=== PATIENT | male | born 1970 | race American Indian/Alaskan Native ===

== ENCOUNTER → 2018-12-02 07:24 | Outpatient (CLI) | payer BC, SELFPAY ==
--- NOTE | 2018-12-02 | DI.MRI.S_ITS ---
PROCEDURE: MR KNEE LT WO CON INDICATIONS: LEFT LEG POSSIBLE HYPER EXTENSION INJURY, LATERAL TECHNIQUE: Noncontrast sagittal PD fast spin echo and T2 fast spin echo with fat saturation, sagittal 3-D FLASH with fat saturation; coronal T1 spin echo and PD fast spin echo with fat saturation, and axial PD fast spin echo with fat saturation through the knee. COMPARISON: [facility], MR, KNEE WITHOUT CONTRAST, 09/22/2013, 18:25. FINDINGS: Image quality: Excellent. 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 Complex tear involving the anterior horn, body and posterior horn of the lateral meniscus. There is a large multiloculated para meniscal cyst adjacent to the anterior horn, which measures approximately 1.4 x 1.2 cm on sagittal image 25 series 7, and approximately 3.0 cm in the transverse dimension on coronal image 13 series 10, it appears to extend into the anterior intercondylar notch. This has increased in size since prior study. Cruciate ligaments: The anterior and posterior cruciate ligaments appear intact. Medial structures: The medial collateral ligament appears intact. The posterior oblique ligament, semimembranosus tendon insertions, oblique popliteal ligament, and meniscocapsular junction appear intact. Visualized portions of the pes anserinus tendons appear normal. No abnormal bursal fluid. Lateral structures: The lateral collateral ligament sprain although the appearance is new or progressed since 09/22/13. The long and short heads of the biceps femoris tendon appear intact. The popliteus tendon appears normal; the popliteofibular ligament appears intact. The posterosuperior and anteroinferior popliteomeniscal fascicles appear intact. The arcuate and fabellofibular ligaments appear intact, on either side of the lateral inferior geniculate artery. Iliotibial band appears normal. Anterior structures: The quadriceps and patellar tendons appear intact. Patellar alignment is normal. No femoral trochlear dysplasia or ventral trochlear prominence. No edema in the infrapatellar fat pad. Bones and cartilage: No bone marrow contusions or fractures. Within the medial compartment, diffuse surface fraying of the femoral and tibial articular cartilage. Within the lateral compartment, there is diffuse partial thickness of the femoral and tibial cartilage. Within the patellofemoral compartment, there is diffuse partial thickness loss of the patellar and femoral trochlear cartilage. Joint space: Moderate to large joint effusion is present. Trace Tellez's cyst identified. No definite intra-articular loose bodies IMPRESSION: Complex circumferential tear of the lateral meniscus with associated large multiloculated parameniscal cyst next to the anterior horn as detailed above, it appears enlarged since the prior study and extends into the anterior intercondylar notch. Tricompartmental joint degeneration. Interval progression of proximal lateral collateral ligament sprain although no more recent prior examinations available. Moderate to large joint effusion. Trace Tellez's cyst. Dictated by: Luis Bean M.D. on 12/02/2018 at 10:15 Approved by: Luis Bean M.D. on 12/02/2018 at 10:27
== END ==
PROVIDERS: Family Provider Family Medicine; PCP Family Medicine; Visit Provider Family Medicine
DX: S83.272A Complex tear of lateral meniscus, current injury, left knee, initial encounter (principal); S83.422A Sprain of lateral collateral ligament of left knee, initial encounter; M17.12 Unilateral primary osteoarthritis, left knee; M25.462 Effusion, left knee; X58.XXXA Exposure to other specified factors, initial encounter
CPT/HCPCS: 73721

== ENCOUNTER → 2019-03-11 08:32 | Outpatient (CLI) | payer BC, SELFPAY ==
[2019-03-11 09:30] LABS: Add Manual Diff / Slide Review NO; Basophils Absolute Auto 0 /uL (0-100); Basophils Percent Auto 0.8 % (0-2); Eosinophils Absolute Auto 100 /uL (0-450); Eosinophils Percent Auto 2.8 % (2-4); Hematocrit 41.5 % (41-53); Hemoglobin 14.4 g/dL (13.5-17.5); Lymphocytes Absolute Auto 1800 /uL (1100-4500); Lymphocytes Percent Auto 38.1 % (25-40); Mean Corpuscular HGB Conc 34.7 % (30-36); Mean Corpuscular Hemoglobin 30.9 PG (26-34); Mean Corpuscular Volume 89.2 fL (80-100); Monocytes Absolute Auto 600 /uL (0-900); Monocytes Percent Auto 11.8 % (3-14); Neutrophils Absolute Auto 2200 /uL (1500-7000); Neutrophils Percent Auto 46.5 % (50-75); Platelet Count 199 X10^3/uL (150-400); Red Blood Cell Count 4.66 X10^6/uL (4.5-5.9); Red Cell Distribution Width 13.4 % (11.6-14.8); White Blood Cell Count 4.8 X10^3/uL (4.5-11.0)
[2019-03-11 09:41] LABS: Alanine Aminotransferase 67 IU/L (21-72); Albumin 4.2 g/dL (3.5-5.0); Albumin Globulin Ratio 1.1 (1.0-2.8); Alkaline Phosphatase 57 U/L (38-126); Aspartate Aminotransferase 44 IU/L (17-59); BUN Creatinine Ratio 25.7 (6-22); Bilirubin Total 0.5 mg/dL (0.2-1.3); Blood Urea Nitrogen 18 mg/dL (9-20); Carbon Dioxide 25 mmol/L (22-32); Chloride 105 mmol/L (98-107); Cholesterol 209 mg/dL (140-199); Estimated Glomerular Filt Rate > 60.0 mL/min (>60); Globulin 3.7 g/dL (1.7-4.1); Glucose 118 mg/dL (70-100); HDL Cholesterol 28 mg/dL (40-60); HEMOLYSIS < 15 (0-50); LDL Cholesterol Calculated 127 mg/dL (<100); Potassium 4.1 mmol/L (3.4-5.1); Sodium 139 mmol/L (137-145); Total Protein 7.9 g/dL (6.3-8.2); Triglycerides 268 mg/dL (35-150)
[2019-03-11 10:00] LABS: HEMOLYSIS < 15 (0-50); Iron 121 ug/dL (49-181); Vitamin D 25 Hydroxy (D3) 22.1 ng/mL (30.0-100.0)
[2019-03-11 10:08] LABS: Hemoglobin A1C% w Est Avg Glu 5.4 % (4.0-6.0)
[2019-03-11 10:12] LABS: Percent Iron Saturation 39 % (20-50); Total Iron Binding Capacity 313 ug/dL (261-462); Transferrin 240 mg/dL (206-381)
[2019-03-11 10:36] LABS: Thyroid Stimulating Hormone 1.47 uIU/mL (0.47-4.68)
[2019-03-11 10:42] LABS: Folate 7.3 ng/mL (2.76-20.0); Vitamin B12 530 pg/mL (239-931)
[2019-03-13 21:06] LABS: Sex Hormone Binding Globulin 32 nmol/L (10-50); Testosterone, Bioavailable 130.4 ng/dL (110.0-575.0); Testosterone, Total 495 ng/dL (250-1100); Testosterone,Free 70.9 pg/mL (46.0-224.0)
[2019-03-14 16:31] LABS: Vitamin A 44 mcg/dL (38-98)
[2019-03-14 16:33] LABS: Vitamin B1 174 nmol/L (78-185)
[2019-03-15 19:57] LABS: Zinc 61 mcg/dL (60-130)
== END ==
PROVIDERS: Visit Provider Surgery
DX: Z01.818 Encounter for other preprocedural examination (principal); M54.9 Dorsalgia, unspecified; I10 Essential (primary) hypertension; E78.5 Hyperlipidemia, unspecified
CPT/HCPCS: 36415; 80053; 80061; 82040; 82306; 82607; 82728; 82746; 83036; 83540; 83550; 84270; 84403; 84425; 84443; 84590; 84630; 85025

== ENCOUNTER 2020-06-27 11:21 | Inpatient (IN) | payer BC, SELFPAY ==
[2020-06-27] VITALS (19 sets, daily range): BP systolic 133–169; BP diastolic 74–111; PULSE 75–138; RESP 9–20; TEMP 36.6–37.2; O2SAT 94–100; BMI 26.9
--- NOTE | 2020-06-27 | PATH_ITS ---
[facility] Accession Number: [id number] . 01 Material submitted: . hand - FOREIGN BODY DEEP ABSCESS LEFT HAND . 01 Clinical history: . LEFT HAND AND FINGER SWELLING . 02 Diagnosis: Foreign Body, Deep Abscess, Left Hand, Excision. Foreign material, consistent with splinter. Associated fibrinopurulent exudate. MRV 06/30/2020 1108 Local . 02 Electronically signed: . Jorge Luis Waldron MD, PhD, Pathologist NPI- [id number] . 01 Gross description: . Received in formalin, labeled left hand foreign body deep abscess, is a 0.9 x 0.1 x 0.1 cm brown fragment of presumed tissue. The specimen is entirely submitted in cassette A1. ([id number]) /V 06/29/2020 1326 Local . 02 Pathologist provided ICD-10: S60.552A, L02.512 . 02 CPT . 388027 Performed at: 01 [facility] [address], [place], [place] [id number] MD Marco Antonio Neely MD Phone: [phone] Performed at: 02 [facility] [address] [place], [place] [id number] MD Ewa Hess MD Phone: [phone]
--- NOTE | 2020-06-27 12:28 | ED.WOUNDLAC ---
HPI - Wound/Laceration <Dyan Ramírez PA-C - Last Filed: 06/27/20 21:56> General Chief Complaint: Wound/Laceration Stated Complaint: Left hand and finger swelling Time Seen by Provider: 06/27/20 12:24 Source: patient History of Present Illness HPI narrative: This is a previously healthy left handed 50-year-old with history of gastric sleeve bypass who presents with significant left hand pain and swelling. Eight days ago he got a large splinter from some treated wood, it went into his palm between his 3rd and 4th fingers he says it was a very large splinter. They tried to remove it but it came out fragments and he thinks there could possibly be some remaining in his hand. His hand became painful and swollen and he was able to get in to see someone in his primary care office on Sunday, 3 days ago he was started on Augmentin and told to call the on-call doctor is he was not improving. He has actually worsened significantly since that time with increasing pain decreased range of motion and increased swelling and redness. He is now having pain that crosses his wrist goes up into his forearm as well as some redness streaking up into his forearm. He has been having some low-grade fevers and chills at home but denies any other symptoms. Onset (ago): day(s) () Extremity Location: Left: arm (Left hand) Place: outdoors Context: accidental Associated symptoms: pain, suspect foreign body present, unable to move injured part (Significant swelling), fever and other (Chills) Treatments prior to arrival: other (Augmentin for the past 3 days) Related Data Home Medications Medication Instructions Recorded Confirmed dextroamphetamine-amphetamine 20 mg PO BID 06/27/20 06/27/20 meloxicam 15 mg PO DAILY 06/27/20 06/27/20 omeprazole 20 mg PO DAILY 06/27/20 06/27/20 paroxetine HCl 25 mg PO DAILY 06/27/20 06/27/20 Allergies Allergy/AdvReac Type Severity Reaction Status Date / Time No Known Drug Allergies Allergy Verified 06/27/20 11:36 Review of Systems <Dyan Ramírez PA-C - Last Filed: 06/27/20 21:56> Review of Systems Narrative: GENERAL: Positive for chills, fatigue, negative for malaise, positive for fever, negative for sweats. HEENT: Denies sinus pain, ear pain, sore throat, difficulty swallowing, dizziness. RESPIRATORY: Denies dyspnea, cough, wheezing, hemoptysis, sputum. CARDIOVASCULAR: Denies chest pain, palpitations, orthopnea, edema, GASTROINTESTINAL: Denies nausea, vomiting, abdominal pain, diarrhea, constipation, melena. : Denies dysuria, frequency, incontinence, hematuria, urinary retention. MUSCULOSKELETAL: Positive for swelling and pain with movement in his hand and fingers. Unable to make a fist or extend his fingers due to significant swelling and pain. He has some pain with range of motion at the wrist as well. Sensation is intact, capillary refill is intact. Denies weakness, joint pain, or bony pain SKIN: Denies rash, skin lesions, or other NEUROLOGIC: Denies weakness, headache, numbness, change in speech, confusion, seizures, incoordination. PSYCHIATRIC: No concerning psychosocial issues. 12 point review of systems is negative except for those stated above Patient History <Dyan Ramírez PA-C - Last Filed: 06/27/20 21:56> Social History household members: spouse and children alcohol intake: never tobacco type: vaping Substance Use Type: does not use Exam <Dyan Ramírez PA-C - Last Filed: 06/27/20 21:56> Narrative Exam Narrative: GENERAL: 50 year old patient appears stated age. Well-nourished, well-developed patient, in mild distress. HEAD: Atraumatic. Normocephalic. EYES: Pupils equal round and reactive. Extraocular motions intact. No scleral icterus. No injection or drainage. ENT: Nose without bleeding, purulent drainage. Throat without erythema, tonsillar hypertrophy or exudate. Airway patent. NECK: Trachea midline. Non tender CARDIOVASCULAR: Regular rate and rhythm without murmurs, gallops, or rubs. RESPIRATORY: Clear to auscultation. Breath sounds equal bilaterally. No wheezes, rales, or rhonchi. GASTROINTESTINAL: Abdomen soft, non-tender, nondistended. EXTREMITIES: There is significant swelling of the left hand and fingers sparing the wrist. There is erythema of the distal palm, posterior hand and there is erythematous streaking going up his arm to his elbow in approximately a 1 cm wide course. Has significant pain with any attempted range of motion of his fingers, making a fist and has moderate pain with movement of his wrist. Sensation is intact, area of erythema is extremely sensitive to palpation and light touch. Capillary refill is less than 2 seconds. No other edema or joint tenderness. BACK: Nontender without deformity or crepitance. No flank tenderness. NEURO: AOx3. SKIN: No rash or erythema of visible areas Initial Vital Signs Initial Vital Signs: Vital Signs Temperature 99.0 F 06/27/20 11:34 Pulse Rate 138 H 06/27/20 11:34 Respiratory Rate 16 06/27/20 11:34 Blood Pressure 155/111 H 06/27/20 11:34 Pulse Oximetry 98 06/27/20 11:34 <Nadiya Razo MD - Last Filed: 06/28/20 18:09> Initial Vital Signs Initial Vital Signs: Vital Signs Temperature 99.0 F 06/27/20 11:34 Pulse Rate 138 H 06/27/20 11:34 Respiratory Rate 16 06/27/20 11:34 Blood Pressure 155/111 H 06/27/20 11:34 Pulse Oximetry 98 06/27/20 11:34 Scores <Dyan Ramírez PA-C - Last Filed: 06/27/20 21:56> GCS Mcdougal coma scale eye opening: Spontaneous Mcdougal coma scale verbal response: Orientated Mcdougal coma scale motor response: Obey commands Narda coma scale total score: 15 Course <Dyan Ramírez PA-C - Last Filed: 06/27/20 21:56> Course Course Narrative: I asked Dr. Razo attending to look at this patient's arm and hand. And have consulted Orthopedics Dr. Chowdhury for possible debridement. Will be starting IV antibiotics, ceftriaxone and vancomycin after 2nd cultures are drawn. 13:[address] Chowdhury who will try to get him into the OR today, told her I would admit to hospitalist,. Spoke to hospitalist Dr. Baird who asks if there is a specific reason patient needs to be admitted to the hospitalis team notes that if Dr. Dickerson requests he take care of the patient he is happy to but as this is a generally healthy patient who is not actively septic he feels this may not be necessary. Spoke with Dr. Chowdhury again who advises she is fine managing his care. 14:13 Orders Ordered: Acetaminophen (Tylenol) 975 mg PO TID [facility] Last Admin: 06/28/20 14:51 Dose: 650 mg Documented by: Admin: 06/28/20 08:03 Dose: 975 mg Documented by: Admin: 06/27/20 20:24 Dose: 975 mg Documented by: MARIALUISA Ciprofloxacin (Cipro) 750 mg PO BID [facility] Last Admin: 06/28/20 08:48 Dose: 750 mg Documented by: Admin: 06/27/20 20:24 Dose: 750 mg Documented by: MARIALUISA Docusate Sodium (Colace) 100 mg PO BID [facility] Last Admin: 06/28/20 08:02 Dose: 100 mg Documented by: Admin: 06/27/20 20:23 Dose: 100 mg Documented by: MARIALUISA Hydromorphone HCl (Dilaudid) 0.5 mg IV Q1H PRN PRN Reason: Pain, Severe (7-10) Last Admin: 06/28/20 16:07 Dose: 0.5 mg Documented by: Admin: 06/28/20 13:00 Dose: 0.5 mg Documented by: Admin: 06/28/20 10:54 Dose: 0.5 mg Documented by: Admin: 06/28/20 09:36 Dose: 0.5 mg Documented by: Admin: 06/28/20 07:10 Dose: 0.5 mg Documented by: Admin: 06/27/20 23:58 Dose: 0.5 mg Documented by: Admin: 06/27/20 22:34 Dose: 0.5 mg Documented by: Admin: 06/27/20 20:23 Dose: 0.5 mg Documented by: Admin: 06/27/20 19:23 Dose: 0.5 mg Documented by: MARIALUISA Lactated Ringer's (Lactated Ringers) 1,000 mls @ 100 mls/hr IV CONT [facility] Last Admin: 06/27/20 19:19 Dose: 100 mls/hr Documented by: MARIALUISA Vancomycin HCl/Dextrose (Vancomycin) 1,500 mg in 300 mls @ 200 mls/hr IV Q8H [facility] Last Admin: 06/28/20 17:51 Dose: 200 mls/hr Documented by: Infusion: 06/28/20 09:32 Dose: 200 mls/hr Documented by: Admin: 06/28/20 08:02 Dose: 200 mls/hr Documented by: Infusion: 06/28/20 01:22 Dose: 200 mls/hr Documented by: Admin: 06/27/20 23:52 Dose: 200 mls/hr Documented by: ANAMIKA Naloxone HCl (Narcan) 0.2 mg IV Q2MIN PRN PRN Reason: Opiate Reversal Ondansetron HCl (Zofran) 4 mg IV Q4HR PRN PRN Reason: Nausea And Vomiting Ondansetron HCl (Zofran Odt) 4 mg PO Q4HR PRN PRN Reason: Nausea And Vomiting Oxycodone HCl (Percolone) 5 mg PO Q3HR PRN PRN Reason: Pain, Moderate (4-6) Last Admin: 06/28/20 03:58 Dose: 5 mg Documented by: ANAMIKA Oxycodone HCl (Percolone) 10 mg PO Q3HR PRN PRN Reason: Pain, Severe (7-10) Last Admin: 06/28/20 16:07 Dose: 10 mg Documented by: Admin: 06/28/20 08:12 Dose: 10 mg Documented by: Admin: 06/27/20 21:17 Dose: 10 mg Documented by: MARIALUISA Polyethylene Glycol (Miralax) 17 gm PO DAILY [facility] Last Admin: 06/28/20 08:03 Dose: 17 gm Documented by: LORY Discontinued Medications Acetaminophen (Tylenol) 650 mg PO PACUNOW PRN PRN Reason: Pain, Mild (1-3) Hydrocodone Bitart/Acetaminophen (Osprey 5/325) 1 tab PO Q4HR PRN PRN Reason: Pain, Mild (1-3) Hydrocodone Bitart/Acetaminophen (Osprey 5/325) 2 tab PO Q4HR PRN PRN Reason: Pain, Moderate (4-6) Last Admin: 06/28/20 05:51 Dose: 2 tab Documented by: Admin: 06/27/20 19:17 Dose: 2 tab Documented by: MARIALUISA Bupivacaine HCl/Epinephrine Bitart (Sensorcaine 0.25% W/ Epi (Pf)) 30 ml INJ NOW ONE Stop: 06/27/20 17:09 Last Admin: 06/27/20 17:08 Dose: 10 ml Documented by: RAJINDER Fentanyl (Sublimaze) 0 mcg IV Q5M PRN PRN Reason: Pain, Moderate (4-6) Hydromorphone HCl (Dilaudid) 0.5 mg IV NOW ONE Stop: 06/27/20 14:03 Last Admin: 06/27/20 14:23 Dose: 0.5 mg Documented by: CHAGO Hydromorphone HCl (Dilaudid) 1 mg IV NOW ONE Stop: 06/27/20 15:21 Last Admin: 06/27/20 15:25 Dose: 1 mg Documented by: CHAGO Hydromorphone HCl (Dilaudid) 0 mg IV Q5MIN PRN PRN Reason: Pain, Mild (1-3) Ceftriaxone Sodium/Dextrose (Rocephin) 2 gm in 50 mls @ 100 mls/hr IV NOW ONE Stop: 06/27/20 14:20 Last Infusion: 06/27/20 14:53 Dose: 0 mls/hr Documented by: Admin: 06/27/20 14:23 Dose: 100 mls/hr Documented by: CHAGO Sodium Chloride (Normal Saline 0.9%) 2,604 mls @ 868 mls/hr 30 ml/kg infuse over 3 hr (2604 ml) IV NOW ONE Stop: 06/27/20 16:51 Last Infusion: 06/27/20 15:49 Dose: 0 mls/hr Documented by: Admin: 06/27/20 14:24 Dose: 868 mls/hr Documented by: CHAGO Vancomycin HCl/Dextrose (Vancomycin) 1,500 mg in 300 mls @ 200 mls/hr IV Q8H [facility] Last Infusion: 06/27/20 17:07 Dose: 0 mls/hr Documented by: Infusion: 06/27/20 15:56 Dose: 200 mls/hr Documented by: Admin: 06/27/20 15:19 Dose: 200 mls/hr Documented by: CHICO Lactated Ringer's (Lactated Ringers) 1,000 mls @ 42 mls/hr IV CONT [facility] Last Infusion: 06/27/20 18:20 Dose: 0 mls/hr Documented by: Admin: 06/27/20 16:07 Dose: 42 mls/hr Documented by: KRIS Vancomycin HCl (Vancomycin) 1,000 mg in 200 mls @ 200 mls/hr IV Q12H [facility] Last Admin: 06/27/20 22:58 Dose: Not Given Documented by: MARIALUISA Ketorolac Tromethamine (Toradol) 15 mg IM NOW ONE Stop: 06/27/20 12:45 Last Admin: 06/27/20 13:02 Dose: 15 mg Documented by: FABIOLA Metoclopramide HCl (Reglan) 10 mg IV NOW PRN PRN Reason: Nausea And Vomiting Ondansetron HCl (Zofran) 4 mg IV NOW ONE Stop: 06/27/20 14:03 Last Admin: 06/27/20 14:22 Dose: 4 mg Documented by: CHAGO Ondansetron HCl (Zofran) 4 mg IV NOW PRN PRN Reason: Nausea And Vomiting Oxycodone/Acetaminophen (Percocet 5/325) 1 tab PO PACUNOW PRN PRN Reason: Mild or Moderate Pain Polyethylene Glycol (Miralax) 17 gm PO NOW ONE Stop: 06/27/20 20:32 Last Admin: 06/27/20 21:17 Dose: 17 gm Documented by: MARIALUISA Vancomycin HCl (Vancomycin Per Pharmacy) 1 request MISC NOW ONE Stop: 06/27/20 13:52 Last Admin: 06/27/20 15:19 Dose: Not Given Documented by: CHICO Vancomycin HCl (Vancomycin Trough) 1 request MISC NOW ONE Stop: 06/28/20 13:31 Vancomycin HCl (Vancomycin Per Pharmacy) 1 request MISC NOW ONE Stop: 06/27/20 18:34 Last Admin: 06/27/20 20:21 Dose: Not Given Documented by: MARIALUISA Vancomycin HCl (Vancomycin Trough) 1 request MISC NOW ONE Stop: 06/28/20 15:31 Last Admin: 06/28/20 16:15 Dose: 1 request Documented by: MARIALUISA Vital Signs Vital signs: Vital Signs - 8 hr 06/27/20 11:34 06/27/20 13:42 Temperature 99.0 F 98.6 F Pulse Rate 138 H 95 H Respiratory Rate 16 16 Blood Pressure 155/111 H 136/82 Pulse Oximetry 98 98 <Nadiya Razo MD - Last Filed: 06/28/20 18:09> Orders Ordered: Acetaminophen (Tylenol) 975 mg PO TID [facility] Last Admin: 06/28/20 14:51 Dose: 650 mg Documented by: Admin: 06/28/20 08:03 Dose: 975 mg Documented by: Admin: 06/27/20 20:24 Dose: 975 mg Documented by: MARIALUISA Ciprofloxacin (Cipro) 750 mg PO BID [facility] Last Admin: 06/28/20 08:48 Dose: 750 mg Documented by: Admin: 06/27/20 20:24 Dose: 750 mg Documented by: MARIALUISA Docusate Sodium (Colace) 100 mg PO BID [facility] Last Admin: 06/28/20 08:02 Dose: 100 mg Documented by: Admin: 06/27/20 20:23 Dose: 100 mg Documented by: MARIALUISA Hydromorphone HCl (Dilaudid) 0.5 mg IV Q1H PRN PRN Reason: Pain, Severe (7-10) Last Admin: 06/28/20 16:07 Dose: 0.5 mg Documented by: Admin: 06/28/20 13:00 Dose: 0.5 mg Documented by: Admin: 06/28/20 10:54 Dose: 0.5 mg Documented by: Admin: 06/28/20 09:36 Dose: 0.5 mg Documented by: Admin: 06/28/20 07:10 Dose: 0.5 mg Documented by: Admin: 06/27/20 23:58 Dose: 0.5 mg Documented by: Admin: 06/27/20 22:34 Dose: 0.5 mg Documented by: Admin: 06/27/20 20:23 Dose: 0.5 mg Documented by: Admin: 06/27/20 19:23 Dose: 0.5 mg Documented by: MARIALUISA Lactated Ringer's (Lactated Ringers) 1,000 mls @ 100 mls/hr IV CONT [facility] Last Admin: 06/27/20 19:19 Dose: 100 mls/hr Documented by: MARIALUISA Vancomycin HCl/Dextrose (Vancomycin) 1,500 mg in 300 mls @ 200 mls/hr IV Q8H [facility] Last Admin: 06/28/20 17:51 Dose: 200 mls/hr Documented by: Infusion: 06/28/20 09:32 Dose: 200 mls/hr Documented by: Admin: 06/28/20 08:02 Dose: 200 mls/hr Documented by: Infusion: 06/28/20 01:22 Dose: 200 mls/hr Documented by: Admin: 06/27/20 23:52 Dose: 200 mls/hr Documented by: ANAMIKA Naloxone HCl (Narcan) 0.2 mg IV Q2MIN PRN PRN Reason: Opiate Reversal Ondansetron HCl (Zofran) 4 mg IV Q4HR PRN PRN Reason: Nausea And Vomiting Ondansetron HCl (Zofran Odt) 4 mg PO Q4HR PRN PRN Reason: Nausea And Vomiting Oxycodone HCl (Percolone) 5 mg PO Q3HR PRN PRN Reason: Pain, Moderate (4-6) Last Admin: 06/28/20 03:58 Dose: 5 mg Documented by: ANAMIKA Oxycodone HCl (Percolone) 10 mg PO Q3HR PRN PRN Reason: Pain, Severe (7-10) Last Admin: 06/28/20 16:07 Dose: 10 mg Documented by: Admin: 06/28/20 08:12 Dose: 10 mg Documented by: Admin: 06/27/20 21:17 Dose: 10 mg Documented by: MARIALUISA Polyethylene Glycol (Miralax) 17 gm PO DAILY [facility] Last Admin: 06/28/20 08:03 Dose: 17 gm Documented by: LORY Discontinued Medications Acetaminophen (Tylenol) 650 mg PO PACUNOW PRN PRN Reason: Pain, Mild (1-3) Hydrocodone Bitart/Acetaminophen (Osprey 5/325) 1 tab PO Q4HR PRN PRN Reason: Pain, Mild (1-3) Hydrocodone Bitart/Acetaminophen (Osprey 5/325) 2 tab PO Q4HR PRN PRN Reason: Pain, Moderate (4-6) Last Admin: 06/28/20 05:51 Dose: 2 tab Documented by: Admin: 06/27/20 19:17 Dose: 2 tab Documented by: MARIALUISA Bupivacaine HCl/Epinephrine Bitart (Sensorcaine 0.25% W/ Epi (Pf)) 30 ml INJ NOW ONE Stop: 06/27/20 17:09 Last Admin: 06/27/20 17:08 Dose: 10 ml Documented by: RAJINDER Fentanyl (Sublimaze) 0 mcg IV Q5M PRN PRN Reason: Pain, Moderate (4-6) Hydromorphone HCl (Dilaudid) 0.5 mg IV NOW ONE Stop: 06/27/20 14:03 Last Admin: 06/27/20 14:23 Dose: 0.5 mg Documented by: CHAGO Hydromorphone HCl (Dilaudid) 1 mg IV NOW ONE Stop: 06/27/20 15:21 Last Admin: 06/27/20 15:25 Dose: 1 mg Documented by: CHAGO Hydromorphone HCl (Dilaudid) 0 mg IV Q5MIN PRN PRN Reason: Pain, Mild (1-3) Ceftriaxone Sodium/Dextrose (Rocephin) 2 gm in 50 mls @ 100 mls/hr IV NOW ONE Stop: 06/27/20 14:20 Last Infusion: 06/27/20 14:53 Dose: 0 mls/hr Documented by: Admin: 06/27/20 14:23 Dose: 100 mls/hr Documented by: CHAGO Sodium Chloride (Normal Saline 0.9%) 2,604 mls @ 868 mls/hr 30 ml/kg infuse over 3 hr (2604 ml) IV NOW ONE Stop: 06/27/20 16:51 Last Infusion: 06/27/20 15:49 Dose: 0 mls/hr Documented by: Admin: 06/27/20 14:24 Dose: 868 mls/hr Documented by: CHAGO Vancomycin HCl/Dextrose (Vancomycin) 1,500 mg in 300 mls @ 200 mls/hr IV Q8H [facility] Last Infusion: 06/27/20 17:07 Dose: 0 mls/hr Documented by: Infusion: 06/27/20 15:56 Dose: 200 mls/hr Documented by: Admin: 06/27/20 15:19 Dose: 200 mls/hr Documented by: CHICO Lactated Ringer's (Lactated Ringers) 1,000 mls @ 42 mls/hr IV CONT [facility] Last Infusion: 06/27/20 18:20 Dose: 0 mls/hr Documented by: Admin: 06/27/20 16:07 Dose: 42 mls/hr Documented by: KRIS Vancomycin HCl (Vancomycin) 1,000 mg in 200 mls @ 200 mls/hr IV Q12H [facility] Last Admin: 06/27/20 22:58 Dose: Not Given Documented by: MARIALUISA Ketorolac Tromethamine (Toradol) 15 mg IM NOW ONE Stop: 06/27/20 12:45 Last Admin: 06/27/20 13:02 Dose: 15 mg Documented by: FABIOLA Metoclopramide HCl (Reglan) 10 mg IV NOW PRN PRN Reason: Nausea And Vomiting Ondansetron HCl (Zofran) 4 mg IV NOW ONE Stop: 06/27/20 14:03 Last Admin: 06/27/20 14:22 Dose: 4 mg Documented by: CHAGO Ondansetron HCl (Zofran) 4 mg IV NOW PRN PRN Reason: Nausea And Vomiting Oxycodone/Acetaminophen (Percocet 5/325) 1 tab PO PACUNOW PRN PRN Reason: Mild or Moderate Pain Polyethylene Glycol (Miralax) 17 gm PO NOW ONE Stop: 06/27/20 20:32 Last Admin: 06/27/20 21:17 Dose: 17 gm Documented by: MARIALUISA Vancomycin HCl (Vancomycin Per Pharmacy) 1 request MISC NOW ONE Stop: 06/27/20 13:52 Last Admin: 06/27/20 15:19 Dose: Not Given Documented by: CHICO Vancomycin HCl (Vancomycin Trough) 1 request MISC NOW ONE Stop: 06/28/20 13:31 Vancomycin HCl (Vancomycin Per Pharmacy) 1 request MISC NOW ONE Stop: 06/27/20 18:34 Last Admin: 06/27/20 20:21 Dose: Not Given Documented by: MARIALUISA Vancomycin HCl (Vancomycin Trough) 1 request MISC NOW ONE Stop: 06/28/20 15:31 Last Admin: 06/28/20 16:15 Dose: 1 request Documented by: MARIALUISA Vital Signs Vital signs: Vital Signs - 8 hr 06/27/20 11:34 06/27/20 13:42 Temperature 99.0 F 98.6 F Pulse Rate 138 H 95 H Respiratory Rate 16 16 Blood Pressure 155/111 H 136/82 Pulse Oximetry 98 98 MDM - Wound/Laceration <Dyan Ramírez PA-C - Last Filed: 06/27/20 21:56> Differential Diagnosis Differential diagnosis: Likely abscess and other (Cellulitis, localized infection, sepsis, retained foreign body) Medical Records Attestation: I reviewed the patient's medical records. Lab Data Attestation: I reviewed the patient's lab results. Result diagrams: 06/28/20 05:10 06/28/20 05:10 Labs: Lab Results 06/27/20 06/27/20 06/27/20 Range/Units 11:55 11:55 11:55 WBC 11.5 H (4.5-11.0) X10^3/uL RBC 4.56 (4.5-5.9) X10^6/uL Hgb 14.0 (13.5-17.5) g/dL Hct 40.7 L (41-53) % MCV 89.3 (80-100) fL MCH 30.8 (26-34) PG MCHC 34.5 (30-36) % RDW 12.3 (11.6-14.8) % Plt Count 202 (150-400) X10^3/uL Neut % (Auto) 87.3 H (50-75) % Lymph % (Auto) 6.1 L (25-40) % Rankin % (Auto) 5.6 (3-14) % Eos % (Auto) 0.4 L (2-4) % Baso % (Auto) 0.6 (0-2) % Neut # (Auto) 91369 H (9749-9627) /uL Lymph # (Auto) 700 L (5582-2717) /uL Rankin # (Auto) 600 (0-900) /uL Eos # (Auto) 0 (0-450) /uL Baso # (Auto) 100 (0-100) /uL Sodium 137 (137-145) mmol/L Potassium 4.1 (3.4-5.1) mmol/L Chloride 101 (98-107) mmol/L Carbon Dioxide 27 (22-32) mmol/L BUN 17 (9-20) mg/dL Creatinine 0.50 L (0.66-1.25) mg/dL Estimated GFR > 60.0 (>60) mL/min BUN/Creatinine Ratio 34.0 H (6-22) Glucose 155 H (70-100) mg/dL Lactate 1.4 (0.7-2.1) mmol/L Calcium 9.7 (8.4-10.2) mg/dL Total Bilirubin 0.9 (0.2-1.3) mg/dL AST 28 (17-59) IU/L ALT 15 (<50) IU/L Alkaline Phosphatase 82 (38-126) U/L Total Protein 8.2 (6.3-8.2) g/dL Albumin 4.4 (3.5-5.0) g/dL Globulin 3.8 (1.7-4.1) g/dL Albumin/Globulin Ratio 1.2 (1.0-2.8) Procalcitonin (<0.5) ng/mL COVID-19 PCR (Negative) 06/27/20 06/27/20 Range/Units 11:55 14:30 WBC (4.5-11.0) X10^3/uL RBC (4.5-5.9) X10^6/uL Hgb (13.5-17.5) g/dL Hct (41-53) % MCV (80-100) fL MCH (26-34) PG MCHC (30-36) % RDW (11.6-14.8) % Plt Count (150-400) X10^3/uL Neut % (Auto) (50-75) % Lymph % (Auto) (25-40) % Rankin % (Auto) (3-14) % Eos % (Auto) (2-4) % Baso % (Auto) (0-2) % Neut # (Auto) (9179-2382) /uL Lymph # (Auto) (2212-7767) /uL Rankin # (Auto) (0-900) /uL Eos # (Auto) (0-450) /uL Baso # (Auto) (0-100) /uL Sodium (137-145) mmol/L Potassium (3.4-5.1) mmol/L Chloride (98-107) mmol/L Carbon Dioxide (22-32) mmol/L BUN (9-20) mg/dL Creatinine (0.66-1.25) mg/dL Estimated GFR (>60) mL/min BUN/Creatinine Ratio (6-22) Glucose (70-100) mg/dL Lactate (0.7-2.1) mmol/L Calcium (8.4-10.2) mg/dL Total Bilirubin (0.2-1.3) mg/dL AST (17-59) IU/L ALT (<50) IU/L Alkaline Phosphatase (38-126) U/L Total Protein (6.3-8.2) g/dL Albumin (3.5-5.0) g/dL Globulin (1.7-4.1) g/dL Albumin/Globulin Ratio (1.0-2.8) Procalcitonin < 0.05 (<0.5) ng/mL COVID-19 PCR Negative (Negative) Imaging Data Extremity x-ray #1: Attestation: I personally reviewed and interpreted this imaging study as follows: Radiologist's Impression: [address] [address] XRay Report Signed Patient: Jorge Luis Velez WMR#: [id number] : 1970Acct:[id number] Age/Sex: 50 / MDate of Service: 06/27/20 Loc: ED Accession Number: [id number] Procedure: XR hand LT 2V Ordering Provider: Dyan Ramírez P.A-C PROCEDURE: XR HAND LT 2V INDICATIONS: swelling, abscess v/foreign body hand TECHNIQUE: 2 views of the hand(s) acquired. COMPARISON: None. FINDINGS: Bones: No fractures or dislocations. Carpal bones are normally aligned. No suspicious bony lesions. Degenerative changes are seen throughout, which are most prominent involving the 1st carpometacarpal joint. Milder degenerative changes are seen elsewhere. Soft tissues: Generalized soft tissue swelling is seen. No radiopaque foreign bodies are seen. IMPRESSION: Generalized soft tissue swelling is seen, without a radiopaque foreign body identified. Dictated by: Teodoro Mcgee M.D. on 06/27/2020 at 12:08 Approved by: Teodoro Mcgee M.D. on 06/27/2020 at 12:08 [facility] Narrative Medical decision making narrative: This is a generally healthy 50-year-old left-handed gentleman who presents with significant pain and swelling of his left hand and fingers after sustaining a large splinter to the palm of his hand 8 days ago. After 3 days of antibiotics his symptoms have worsened rather than improved. He has been experiencing fevers and chills. Based on his vitals he does not meet SIRS criteria, however he has a significant cellulitis and inflammation of his left hand and fingers with streaking traveling up his left arm. Fluids and antibiotics are initiated in the emergency department after blood cultures are drawn, orthopedics is consulted for emergent incision and drainage. He is admitted to on-call orthopedic physician and sent to the operating room for I and D with debridement. <Nadiya Razo MD - Last Filed: 06/28/20 18:09> Lab Data Labs: Lab Results 06/27/20 06/27/20 06/27/20 Range/Units 11:55 11:55 11:55 WBC 11.5 H (4.5-11.0) X10^3/uL RBC 4.56 (4.5-5.9) X10^6/uL Hgb 14.0 (13.5-17.5) g/dL Hct 40.7 L (41-53) % MCV 89.3 (80-100) fL MCH 30.8 (26-34) PG MCHC 34.5 (30-36) % RDW 12.3 (11.6-14.8) % Plt Count 202 (150-400) X10^3/uL Neut % (Auto) 87.3 H (50-75) % Lymph % (Auto) 6.1 L (25-40) % Rankin % (Auto) 5.6 (3-14) % Eos % (Auto) 0.4 L (2-4) % Baso % (Auto) 0.6 (0-2) % Neut # (Auto) 91340 H (8045-3403) /uL Lymph # (Auto) 700 L (3065-1634) /uL Rankin # (Auto) 600 (0-900) /uL Eos # (Auto) 0 (0-450) /uL Baso # (Auto) 100 (0-100) /uL Sodium 137 (137-145) mmol/L Potassium 4.1 (3.4-5.1) mmol/L Chloride 101 (98-107) mmol/L Carbon Dioxide 27 (22-32) mmol/L BUN 17 (9-20) mg/dL Creatinine 0.50 L (0.66-1.25) mg/dL Estimated GFR > 60.0 (>60) mL/min BUN/Creatinine Ratio 34.0 H (6-22) Glucose 155 H (70-100) mg/dL Lactate 1.4 (0.7-2.1) mmol/L Calcium 9.7 (8.4-10.2) mg/dL Total Bilirubin 0.9 (0.2-1.3) mg/dL AST 28 (17-59) IU/L ALT 15 (<50) IU/L Alkaline Phosphatase 82 (38-126) U/L Total Protein 8.2 (6.3-8.2) g/dL Albumin 4.4 (3.5-5.0) g/dL Globulin 3.8 (1.7-4.1) g/dL Albumin/Globulin Ratio 1.2 (1.0-2.8) Procalcitonin (<0.5) ng/mL COVID-19 PCR (Negative) 06/27/20 06/27/20 Range/Units 11:55 14:30 WBC (4.5-11.0) X10^3/uL RBC (4.5-5.9) X10^6/uL Hgb (13.5-17.5) g/dL Hct (41-53) % MCV (80-100) fL MCH (26-34) PG MCHC (30-36) % RDW (11.6-14.8) % Plt Count (150-400) X10^3/uL Neut % (Auto) (50-75) % Lymph % (Auto) (25-40) % [place] % (Auto) (3-14) % Eos % (Auto) (2-4) % Baso % (Auto) (0-2) % Neut # (Auto) (6069-2986) /uL Lymph # (Auto) (4629-0561) /uL [place] # (Auto) (0-900) /uL Eos # (Auto) (0-450) /uL Baso # (Auto) (0-100) /uL Sodium (137-145) mmol/L Potassium (3.4-5.1) mmol/L Chloride (98-107) mmol/L Carbon Dioxide (22-32) mmol/L BUN (9-20) mg/dL Creatinine (0.66-1.25) mg/dL Estimated GFR (>60) mL/min BUN/Creatinine Ratio (6-22) Glucose (70-100) mg/dL Lactate (0.7-2.1) mmol/L Calcium (8.4-10.2) mg/dL Total Bilirubin (0.2-1.3) mg/dL AST (17-59) IU/L ALT (<50) IU/L Alkaline Phosphatase (38-126) U/L Total Protein (6.3-8.2) g/dL Albumin (3.5-5.0) g/dL Globulin (1.7-4.1) g/dL Albumin/Globulin Ratio (1.0-2.8) Procalcitonin < 0.05 (<0.5) ng/mL COVID-19 PCR Negative (Negative) Discharge Plan Departure Patient Disposition: Admitted As Inpatient Clinical Impression: Cellulitis and abscess of hand, Cellulitis of arm, left Discharge Date/Time: 06/27/20 15:59 Referrals: Jazzy Easley ARNP [Primary Care Provider] - Admit Date/Time: 06/27/20 14:31 Admit Provider: Magalie Chowdhury <Nadiya Razo MD - Last Filed: 06/28/20 18:09> Cosign ED Attending Cosaliaature Attestation: I was immediately available in the department for consultation throughout this patient's visit. I agree with documentation as above. Nadiya Razo MD
[2020-06-27 12:47] LABS: Add Manual Diff / Slide Review NO; Alanine Aminotransferase 15 IU/L (<50); Albumin 4.4 g/dL (3.5-5.0); Albumin Globulin Ratio 1.2 (1.0-2.8); Alkaline Phosphatase 82 U/L (38-126); Aspartate Aminotransferase 28 IU/L (17-59); Basophils Absolute Auto 100 /uL (0-100); Basophils Percent Auto 0.6 % (0-2); Bilirubin Total 0.9 mg/dL (0.2-1.3); Blood Urea Nitrogen 17 mg/dL (9-20); Calcium 9.7 mg/dL (8.4-10.2); Carbon Dioxide 27 mmol/L (22-32); Chloride 101 mmol/L (98-107); Eosinophils Absolute Auto 0 /uL (0-450); Eosinophils Percent Auto 0.4 % (2-4); Estimated Glomerular Filt Rate > 60.0 mL/min (>60); Globulin 3.8 g/dL (1.7-4.1); Glucose 155 mg/dL (70-100); HEMOLYSIS 22 (0-50); Hematocrit 40.7 % (41-53); Lymphocytes Absolute Auto 700 /uL (1100-4500); Lymphocytes Percent Auto 6.1 % (25-40); Mean Corpuscular HGB Conc 34.5 % (30-36); Mean Corpuscular Hemoglobin 30.8 PG (26-34); Mean Corpuscular Volume 89.3 fL (80-100); Monocytes Absolute Auto 600 /uL (0-900); Monocytes Percent Auto 5.6 % (3-14); Neutrophils Absolute Auto 10000 /uL (1500-7000); Neutrophils Percent Auto 87.3 % (50-75); Platelet Count 202 X10^3/uL (150-400); Potassium 4.1 mmol/L (3.4-5.1); Red Blood Cell Count 4.56 X10^6/uL (4.5-5.9); Red Cell Distribution Width 12.3 % (11.6-14.8); Sodium 137 mmol/L (137-145); Total Protein 8.2 g/dL (6.3-8.2); White Blood Cell Count 11.5 X10^3/uL (4.5-11.0)
[2020-06-27] MEDS: KETOROLAC 60 MG/2 ML VIAL 15 MG IM (13:02)
[2020-06-27 14:03] LABS: Lactate (Lactic Acid) 1.4 mmol/L (0.7-2.1)
[2020-06-27] MEDS: ONDANSETRON 4 MG/2 ML INJ IV (14:22)
[2020-06-27] MEDS: CEFTRIAXONE 2 GM/50 ML FROZ.PIGGY IV (14:23)
[2020-06-27] MEDS: HYDROMORPHONE 0.5 MG INJ IV ×5 (14:23→23:58)
[2020-06-27] MEDS: SODIUM CHLORIDE 0.9% 868 ML IV (14:24)
[2020-06-27 14:29] LABS: Procalcitonin < 0.05 ng/mL (<0.5)
--- NOTE | 2020-06-27 14:35 | PC.NURSE ---
pt's left hand is quite swollen, up to his elbow. arm swelling and redness outlined. puncture wound palm at 3rd digit from a piece of pressure treated wood.
--- NOTE | 2020-06-27 14:39 | PC.NURSE ---
wound cleansing to be done by or
--- NOTE | 2020-06-27 15:12 | PM.HP.1 ---
History of Present Illness History of Present Illness Date Patient Seen: 06/27/20 Time Patient Seen: 15:13 Date of Onset of Symptoms: 06/20/20 Chief complaint: Left hand and finger swelling Narrative: The patient is a 50-year-old left-hand dominant male was had increasing left hand and palm swelling for 1 week. One week ago he was breaking down his camp and went to reach for old treated with block and sustained a splinter into his palm at the area of the 3rd MCP. He had some swelling and pain in this area that progressed over the next few days then on Sunday or of last week a size PCP they were able to get some of the splinter out as well as some of the splinter was taken out by his at home. He was started on oral antibiotics Augmentin. States that his swelling and pain has gotten worse over the last few days. Call his PCP today would advise coming to the ER. Denies fevers or chills of but does had decreased range of motion in his digits swelling pain and streaking up the arm at to his elbow. 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 No known drug allergies. Denies numbness or tingling. Endorses throbbing sharp and aching pain centered as distal palm the base of his 3rd and 4th fingers. Has a history of a gastric sleeve surgery as well as multiple knee surgeries Patient History Family & Social History Safety & Behavioral: Feels Safe in Current Yes Environment Been Physically Hurt or No Threatened By a Person Tobacco & Substance use: Substance Use Type does not use Meds Home Medications and Allergies Allergies Allergy/AdvReac Type Severity Reaction Status Date / Time No Known Drug Allergies Allergy Verified 06/27/20 11:36 Review of Systems Review of Systems ROS: Yes All systems reviewed with the patient and are negative except as otherwise documented Exam Vital Signs (past 8 hours): - 06/27/20 11:34 06/27/20 12:00 06/27/20 12:30 Temperature 99.0 F Pulse Rate 138 H 118 H 113 H Respiratory Rate 16 Blood Pressure 155/111 H Pulse Oximetry 98 94 97 06/27/20 12:35 06/27/20 13:42 06/27/20 14:33 Temperature 98.6 F Pulse Rate 95 H 83 Respiratory Rate 16 Blood Pressure 136/82 136/82 146/90 H Pulse Oximetry 98 99 Oxygen Delivery Method Room Air Narrative Exam Narrative: General exam alert oriented male no acute distress HEENT exam normocephalic atraumatic Respiratory exam unlabored on room air lungs clear to auscultation bilaterally CV exam regular rate and rhythm Abdomen exam is benign Musculoskeletal exam moving all extremities. Left hand demonstrates the swelling at the distal palm centered at the 3rd and 4th fingers at the MCP joints/metacarpal heads. There is a pointed wound where it appears the splinter was localized this is at the 3rd metacarpal head level. This is markedly tender to palpation. There is no drainage. Patient demonstrates thumb flexion and extension no thenar swelling. Patient has limited digit range of motion secondary to pain but does demonstrate active flexion and extension. Does hold his 3rd and 4th fingers in slight flexion. There is mild dorsal hand swelling as well no fluctuance. There is lymphangitis streaking dorsally to the elbow. There is no sausage digit appearance to the fingers swelling appears predominantly localized to the MCP level. Sensation grossly intact to light touch median radial ulnar nerves Remainder of a right upper extremity and bilateral lower extremities normal range of motion no tenderness to palpation no swelling or erythema Objective Labs Result Diagrams: 06/27/20 11:55 06/27/20 11:55 Labs: Laboratory Results - last 24 hr 06/27/20 06/27/20 06/27/20 11:55 11:55 11:55 WBC 11.5 H RBC 4.56 Hgb 14.0 Hct 40.7 L MCV 89.3 MCH 30.8 MCHC 34.5 RDW 12.3 Plt Count 202 Neut % (Auto) 87.3 H Lymph % (Auto) 6.1 L [place] % (Auto) 5.6 Eos % (Auto) 0.4 L Baso % (Auto) 0.6 Neut # (Auto) 48388 H Lymph # (Auto) 700 L [place] # (Auto) 600 Eos # (Auto) 0 Baso # (Auto) 100 Sodium 137 Potassium 4.1 Chloride 101 Carbon Dioxide 27 BUN 17 Creatinine 0.50 L Estimated GFR > 60.0 BUN/Creatinine Ratio 34.0 H Glucose 155 H Lactate 1.4 Calcium 9.7 Total Bilirubin 0.9 AST 28 ALT 15 Alkaline Phosphatase 82 Total Protein 8.2 Albumin 4.4 Globulin 3.8 Albumin/Globulin Ratio 1.2 Procalcitonin 06/27/20 11:55 WBC RBC Hgb Hct MCV MCH MCHC RDW Plt Count Neut % (Auto) Lymph % (Auto) [place] % (Auto) Eos % (Auto) Baso % (Auto) Neut # (Auto) Lymph # (Auto) [place] # (Auto) Eos # (Auto) Baso # (Auto) Sodium Potassium Chloride Carbon Dioxide BUN Creatinine Estimated GFR BUN/Creatinine Ratio Glucose Lactate Calcium Total Bilirubin AST ALT Alkaline Phosphatase Total Protein Albumin Globulin Albumin/Globulin Ratio Procalcitonin < 0.05 Assessment & Plan Assessment and plan (1) Cellulitis and abscess of hand: Problem details: Patient has swelling that is worsening cellulitis and lymphangitis of his left hand and arm centered around the area of a penetrating trauma to his left hand distal palm at the level of the 3rd MCP. This was a treated wood splinter. Concern for involving abscess some worsening infection possible residual foreign material. May represent mid palmar abscess. Does not appear to be classic flexor tenosynovitis at this time but could progress violation of the tendon sheath. Patient has been indicated for an exploration irrigation debridement of his infection. Risks benefits and alternatives were discussed with the patient including need for additional procedures stiffness or wound healing problems. Plan postoperatively will be admission for IV antibiotics. Once he is improving would moved to oral regimen. The risks and benefits of the procedure have been discussed with the patient even opportunity to ask questions. The risks of surgery include but are not limited to infection, stiffness, need for additional procedures, persistence of pain, damage to nerves and blood vessels, posttraumatic arthritis, DVT, PE, cardiopulmonary complications and . The patient expressed a thorough understanding of the risks and benefits of surgery and has elected to proceed. Consent was signed. Status: Acute (2) Cellulitis of arm, left: Problem details: Treatment above with abscess and postoperative with IV antibiotics. Follow-up cultures Status: Acute Quality VTE Deep Vein Thrombosis/Pulmonary Embolism Present on Admission: No
[2020-06-27] MEDS: VANCOMYCIN 1,500 MG/300 ML FROZ.PIGGY 200 MG IV ×2 (15:19→23:52)
[2020-06-27] MEDS: HYDROMORPHONE 0.5 MG INJ 1 MG IV (15:25)
[2020-06-27 15:44] LABS: COVID19 -Nasal RAPID Negative (Negative)
[2020-06-27] MEDS: LACTATED RINGERS 1,000 ML 42 ML IV (16:07)
--- NOTE | 2020-06-27 16:33 | SUR.OPER ---
Supine on padded OR bed, head on pillow, right arm secured on padded arm boards at <90 degrees abduction, Left arm on arm table under control of surgeon. Legs uncrossed, safety belt at thigh, tape over blanket over lower legs.
[2020-06-27] MEDS: BUPIVACAINE 0.25% W/ EPI 30 ML VIAL INJ (17:08)
--- NOTE | 2020-06-27 17:45 | P.OP_ITS ---
Operative Date/Time/Diagnoses Date of procedure: 06/27/20 Time of procedure: 17:45 Pre-op diagnosis: Left hand abscess Post-op diagnosis: same Procedure & Clinicians Procedure: 1. Irrigation debridement mid palmar bursa CPT code 60197 left-hand 2. Removal foreign body would fragment left hand CPT code 33877 3. Drainage tendon sheath left middle finger CPT code 41180-95 Number for drainage and sheath left ring finger CPT code 01674-26 Same procedure as scheduled: Yes Indications: Patient is a 50 male who sustained a penetrating trauma injury to his left hand from a piece of wood 7 days ago. This penetrated 3rd and 4th palmar web space. He got increasing pain and swelling. He saw his PCP in the week and got admitted. He had this for a few days and had increasing swelling and pain and is range of motion were sent. Swelling has worsened pain increasing suspicious for abscess and possible residual foreign body. Patient was indicated for exploration and drainage and removal of foreign body and possible tendon sheath irrigation. In the emergency room had exquisite tenderness at the mid palmar space centered on the middle and ring finger MCP joints with flexed posture and pain with range of motion of the middle ring fingers. The risks benefits of the procedure were discussed with the patient and he is given the opportunity to ask questions. The risks of surgery include but are not limited to infection, stiffness, need for additional procedures, persistence of pain, damage to nerves and blood vessels, posttraumatic ar thritis, DVT, PE, cardiopulmonary complications and . The patient expressed thorough understanding of the risks benefits of surgery and wished to proceed. Consent was signed. Surgeon: Magalie Chowdhury Click Yes if Unassisted: Yes Anesthesia Type: General and Local Operative Notes Findings: Twenty swelling over the volar MCPs and A1 silver region of the middle and ring fingers of the left hand. On incision was gross yellow purulence that tracked through the mid palmar space. This did not appear to track dorsally. This did track into the web spaces distally more superficially along the middle ring fingers. Based on this tracking deep to the level of the A1 silver and distal to the ring fingers and flexor tendon sheath opening was completed both proximally distally the middle and ring fingers and these were irrigated. There was no gross purulence noted with the in the tendon sheath itself however there was gross purulence all throughout the mid palmar space surrounding these areas. A wood splinter remain it was found volarly overlying the 3rd A1 silver Closure Type: not applicable Specimen(s): other (Wood foreign body and swab sent for culture) Estimated Blood Loss (mL): 10 Blood products transfused: none Tourniquet time (min): 42 Procedure in detail: Patient was seen in the preoperative area the site of surgery was marked informed consent confirmed. The patient was brought back to the operating room by the anesthesia team and placed supine on the operative table. General anesthesia was administered. Well-padded nonsterile brachial tourniquet was placed. SCDs were on the lower extremities. All bony prominences were well padded. Left upper extremity was prepped and draped in standard sterile fashion. A formal time-out procedure was performed confirming the patient's side and site of surgery. Current vancomycin was running as started in the ER. Sturdivant exsanguination was completed the tourniquet was raised to 250 mm of mercury. Attention was turned to the left palm. Swelling was centered over the metacarpal heads and the A1 silver areas of the middle ring finger. It was decided to proceed with trigger finger style incisions rather than a large crippled distal incision for ease of healing. Therefore standard longitudinal incision was taken over the A1 silver of the middle finger on the skin incision there was gross purulence noted. This was dissected bluntly down the level of the A1 silver. Paralysis was noted to tract radially and ulnarly along the mid palmar bursa to the ring finger and then out to was noted in the superficial volar tissues of the 3rd digit. Similarly the A1 silver incision was made over the ring finger with the same findings. Foreign body was located over the middle finger incision along the distal aspect of the A1 silver and this was a sliver that appeared to be wood. It was sent for microbiology. Once the initial gross purulence was evacuated the A1 pulleys of the middle and ring fingers were isolated through their respective incisions were released to expose the flexor tendons below. Additionally transverse incision was made just proximal to the distal flexor crease at the middle finger and at the ring finger to expose the tendon sheath distally. Using a 14 gauge angiocath the tendons were irrigated thoroughly from proximal to distal and it was noted that clear saline can at both ends and there was no gross purulence in the tendon sheath. Again there was purulence noted in the superficial tissues tracking and the proximal aspects of the volar digits. After irrigation of the 10 she has attention was again turned to the mid palmar bursa which was thoroughly irrigated with saline and the extent of the abscess was explored and debrided also using a rongeur. Followed this with a dilute Betadine solution that was used to thoroughly soaked the wound for approximately 3 minutes and this was rinsed with saline once again. Next clean gauze was used to pack all incisions including the 2 palmar incisions in the distal finger incisions. 10 cc of 0.25% Marcaine with epinephrine was used as a local anesthetic. Clean gauze and Kerlix was then placed. The patient was woken from anesthesia and taken to recovery room in good condition. All counts were correct. There no immediate complications for this procedure. Complications: none Post-operative Condition: stable Disposition: PACU Plan for aftercare: Admission to the floor with broad-spectrum antibiotics. These will be tailored based on intraoperative cultures. Will start warm soapy soaks b.i.d. tomorrow morning for the b.i.d. packing and soaks. Incisions will heal secondarily. Will transition to oral antibiotics as cultures dictate.
--- NOTE | 2020-06-27 18:00 | SUR.PHASEI ---
Patient having some short episodes of bigeminy (4-6 beats). All self limiting and assymptomatic. Patient states him and his twin both have had skipped heart beats in the past. Dr. Marrero made aware of NSR with some bigeminy and saw it on telemetry. No new orders. Patient's vital signs stable. Report given to Conchis PLASENCIA.
[2020-06-27] MEDS: HYDROCODONE/ACET 5/325 TABLET 2 TAB PO (19:17)
[2020-06-27] MEDS: LACTATED RINGERS 1,000 ML 100 ML IV (19:19)
[2020-06-27] MEDS: DOCUSATE 100 MG CAPSULE PO (20:23)
[2020-06-27] MEDS: ACETAMINOPHEN 325 MG TABLET 975 MG PO (20:24)
[2020-06-27] MEDS: CIPROFLOXACIN 250 MG TABLET 750 MG PO (20:24)
[2020-06-27] MEDS: polyethylene glycoL 3350 17 GM POWD.PACK PO (21:17)
[2020-06-27] MEDS: OXYCODONE IR 10 MG TABLET PO (21:17)
--- NOTE | 2020-06-27 21:52 | PC.NURSE ---
Admit/Evening Shift Note- Patient arrived to room via stretcher from PACU at 1810. Admission questions done, home medications reviewed, skin check done, and physical assessment done. Oriented patient to bed and bed controls, room, bathroom, lights, menu, phone, and call webb/tv remote. left hand dressing c/d/i and elevated up on pillows. PRN PO Naylor given without much relief reported. Spoke with Dr. Chowdhury and recieved new order for Oxycodone PO Q3H PRN and also miralax per [id number] request. Patient reports last BM was 2-3days ago. Safety measures in place. Patient agreed to call for assistance. SCD's on as ordered. call webb and phone within reach. Will continue to monitor.
[2020-06-28] VITALS (7 sets, daily range): BP systolic 102–147; BP diastolic 59–84; PULSE 83–99; RESP 15–19; TEMP 36.2–37.1; O2SAT 94–99
[2020-06-28] MEDS: OXYCODONE IR 5 MG TABLET PO (03:58)
[2020-06-28 05:42] LABS: Hematocrit 33.7 % (41-53); Hemoglobin 11.4 g/dL (13.5-17.5); Mean Corpuscular HGB Conc 33.9 % (30-36); Mean Corpuscular Hemoglobin 30.5 PG (26-34); Mean Corpuscular Volume 90.1 fL (80-100); Platelet Count 186 X10^3/uL (150-400); Red Blood Cell Count 3.74 X10^6/uL (4.5-5.9); Red Cell Distribution Width 12.3 % (11.6-14.8); White Blood Cell Count 10.7 X10^3/uL (4.5-11.0)
[2020-06-28] MEDS: HYDROCODONE/ACET 5/325 TABLET 2 TAB PO (05:51)
[2020-06-28 05:53] LABS: BUN Creatinine Ratio 27.1 (6-22); Blood Urea Nitrogen 13 mg/dL (9-20); Calcium 9.1 mg/dL (8.4-10.2); Carbon Dioxide 28 mmol/L (22-32); Chloride 102 mmol/L (98-107); Estimated Glomerular Filt Rate > 60.0 mL/min (>60); Glucose 163 mg/dL (70-100); HEMOLYSIS < 15 (0-50); Potassium 4.3 mmol/L (3.4-5.1); Sodium 136 mmol/L (137-145)
[2020-06-28] MEDS: HYDROMORPHONE 0.5 MG INJ IV ×7 (07:10→23:02)
[2020-06-28] MEDS: DOCUSATE 100 MG CAPSULE PO ×2 (08:02→20:39)
[2020-06-28] MEDS: VANCOMYCIN 1,500 MG/300 ML FROZ.PIGGY 200 MG IV ×2 (08:02→17:51)
[2020-06-28] MEDS: ACETAMINOPHEN 325 MG TABLET 975 MG PO ×3 (08:03→20:39)
[2020-06-28] MEDS: polyethylene glycoL 3350 17 GM POWD.PACK PO ×2 (08:03→20:39)
[2020-06-28] MEDS: OXYCODONE IR 10 MG TABLET PO ×4 (08:12→22:02)
[2020-06-28] MEDS: CIPROFLOXACIN 250 MG TABLET 750 MG PO ×2 (08:48→20:41)
--- NOTE | 2020-06-28 08:50 | PM.PNPO.1 ---
Subjective Subjective Date Patient Seen: 06/28/20 Time Patient Seen: 08:50 Interval history: Postop day 1 left hand incision and drainage deep space mid palmar abscess. Doing well pain much improved after surgery. States he can move his fingers for the 1st time in several days. Exam Vital Signs (past 8 hours): - 06/28/20 03:21 06/28/20 07:41 Temperature 97.6 F Pulse Rate 87 84 Respiratory Rate 15 16 Blood Pressure 102/59 L Pulse Oximetry 95 99 Oxygen Delivery Method Room Air Oxygen Flow Rate 0 Narrative Exam Narrative: General exam alert oriented male sitting in bed HEENT exam normocephalic atraumatic Respiratory exam unlabored on room air CV exam regular rate and rhythm Upper extremity examination left upper extremity shows dressing in place. Demonstrates flexion extension of all digits. Sensation grossly intact to light touch. Objective Labs Result Diagrams: 06/28/20 05:10 06/28/20 05:10 Labs: Laboratory Results - last 24 hr 06/27/20 06/27/20 06/27/20 11:55 11:55 11:55 WBC 11.5 H RBC 4.56 Hgb 14.0 Hct 40.7 L MCV 89.3 MCH 30.8 MCHC 34.5 RDW 12.3 Plt Count 202 Neut % (Auto) 87.3 H Lymph % (Auto) 6.[address] [place] % (Auto) 5.6 Eos % (Auto) 0.4 L Baso % (Auto) 0.6 Neut # (Auto) 01383 H Lymph # (Auto) [address] [place] # (Auto) 600 Eos # (Auto) 0 Baso # (Auto) 100 Sodium 137 Potassium 4.1 Chloride 101 Carbon Dioxide 27 BUN 17 Creatinine 0.50 L Estimated GFR > 60.0 BUN/Creatinine Ratio 34.0 H Glucose 155 H Lactate 1.4 Calcium 9.7 Total Bilirubin 0.9 AST 28 ALT 15 Alkaline Phosphatase 82 Total Protein 8.2 Albumin 4.4 Globulin 3.8 Albumin/Globulin Ratio 1.2 Procalcitonin COVID-19 PCR 06/27/20 06/27/20 06/28/20 11:55 14:30 05:10 WBC 10.7 RBC 3.74 L Hgb 11.4 L Hct 33.7 L MCV 90.1 MCH 30.5 MCHC 33.9 RDW 12.3 Plt Count 186 Neut % (Auto) Lymph % (Auto) [place] % (Auto) Eos % (Auto) Baso % (Auto) Neut # (Auto) Lymph # (Auto) [place] # (Auto) Eos # (Auto) Baso # (Auto) Sodium Potassium Chloride Carbon Dioxide BUN Creatinine Estimated GFR BUN/Creatinine Ratio Glucose Lactate Calcium Total Bilirubin AST ALT Alkaline Phosphatase Total Protein Albumin Globulin Albumin/Globulin Ratio Procalcitonin < 0.05 COVID-19 PCR Negative 06/28/20 05:10 WBC RBC Hgb Hct MCV MCH MCHC RDW Plt Count Neut % (Auto) Lymph % (Auto) [place] % (Auto) Eos % (Auto) Baso % (Auto) Neut # (Auto) Lymph # (Auto) [place] # (Auto) Eos # (Auto) Baso # (Auto) Sodium 136 L Potassium 4.3 Chloride 102 Carbon Dioxide 28 BUN 13 Creatinine 0.48 L Estimated GFR > 60.0 BUN/Creatinine Ratio 27.1 H Glucose 163 H Lactate Calcium 9.1 Total Bilirubin AST ALT Alkaline Phosphatase Total Protein Albumin Globulin Albumin/Globulin Ratio Procalcitonin COVID-19 PCR Assessment & Plan Post-op Postoperative Procedures: Procedures Operation Date: 06/27/20 15:30 Actual Procedures Side Surgeon p Incision and Drainage Wound/Extremity Left Magalie Chowdhury MD postop day 1 incision drainage deep space abscess left hand. Will start b.i.d. warm soapy soaks. Dressings will be removed. Patient will undergo warm soapy soaks for 15-20 minutes and then repacking of incisions and read dressings. Will remain in the hospital today for broad-spectrum IV antibiotics as cultures are not back. Once cultures are back will bridge to oral antibiotics as clinical appearance of improves and as appropriate Quality VTE Deep Vein Thrombosis/Pulmonary Embolism Present on Admission: No
--- NOTE | 2020-06-28 11:27 | CM.DANOTE ---
Patient is a 50 year old male who was admitted on 06/27/20 for Left Hand Swelling. Pt has [employer] and [employer] Insurance and his PCP is Dr. Jazzy Easley. EMR was reviewed. Per Surgeon, pt failed outpt oral abx and admitted for recurrent cellulitis with need for I&D and IV-Abx with possible d/c tomorrow on orals if remains medically stable. 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 Pt denies any hx of HH or SNF and preference is home tomorrow with family if stable and spouse can provide transport at d/c. Pt does not anticipate any needs and states he still has some pain but significantly better than before I was admitted. Plan: SW to follow for likely plan of discharge home tomorrow with oral abx if remains medically stable and family available to assist if needed. TOI Jacobson Discharge Planning/Care Management CM Discharge Assessment Start: 06/28/20 10:06 Freq: Status: Active Protocol: Document 06/28/20 10:06 (Rec: 06/28/20 10:07 [id number]) Discharge Planning Assessment Assigned [place] TOI Leon DPOA/Assigned Designee Name none, informally spouse Advance Directives? No Advance Directives on File No History Provided By Patient,Medical Record Has Patient been admitted in last 30 No days? Prior Living Arrangements House Household Members spouse,children Type of transporation used prior to Drives own vehicle admit Comment Lives at home with spouse and 14 yo son Independent with ADL's Yes Is patient alert and oriented? Yes Caregiver for Another Yes: 14 yo son at home Comment Home with family anticipated Barriers to Discharge No Discharge Plan Home Transportation Arrangement Spouse available for transport at d/c Referrals Initiated None needed Review Status In Process Please Provide Date Initial DC 06/28/20 Assessment Was Performed Next Review Type Continued Stay Review
--- NOTE | 2020-06-28 12:38 | OT.IP.EVAL ---
Current Diagnoses Cutaneous abscess of unspecified hand (06/27/20) Cellulitis of left upper limb (06/27/20) Cellulitis of unspecified part of limb (06/27/20) Surgery Performed Operation Date: 06/27/20 15:30 Actual Procedures p Incision and Drainage Wound/Extremity(Left) - Magalie Chowdhury MD Occupational Therapy Inpatient Evaluation/Re-Eval M1 PT/OT-IP Prior Functional Status Start: 06/28/20 08:29 Freq: NEEDED Status: Active Protocol: Document 06/28/20 12:31 CGR (Rec: 06/28/20 12:38 CGR [email or web address]) Medical Review Prior Functional Status Medical History Reviewed Yes Communication Pt is an effective verbal communicator. Mobility and Gait Pt was IND without AD Activities of Daily Living and IADL's Pt was IND without AD Social History Household Members spouse,children Living Arrangements House Number of Floors (Floors) One Floor Number of Stairs To Enter/Railing? 2 steps to enter from garage. 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 M2 OT-IP Current Condition Start: 06/28/20 12:30 Freq: Status: Active Protocol: Document 06/28/20 12:31 CGR (Rec: 06/28/20 12:38 CGR [email or web address]) Occupational Therapy Current Condition Current Condition Evaluation Date 06/28/20 Treatment Diagnosis L hand/finger infection s/p I&D Diagnosis Onset Date 06/27/20 M3 OT- IP Subjective and Pain Start: 06/28/20 12:30 Freq: Status: Active Protocol: Document 06/28/20 12:31 CGR (Rec: 06/28/20 12:38 CGR [email or web address]) OT- Subjective Occupational Therapy Visit Type Type Initial Evaluation Visit Start Time 12:00 Visit Stop Time 12:28 Total Visit Minutes 28 OT Pain Assessment Pain When Pain Assessed At Rest Pain Present Pain Present Pain Reported Location Left Hand Intensity 5 Scale Used Numeric (0 - 10) Pain Behaviors Guarding,Holding Area Management Techniques Distraction,Modification of Treatment,Re-positioning M4 OT- IP ADL's Start: 06/28/20 12:30 Freq: Status: Active Protocol: Document 06/28/20 12:31 CGR (Rec: 06/28/20 12:38 CGR [email or web address]) OT [id number] General Evaluation Self-Feeding Ability Independent OT ADL-Grooming Comments OT Grooming Comments not performed OT ADL-Oral Care Comments Oral Care Comments not peformed OT ADL-Dressing General Eval Lower Body Dressing Ability Independent Areas Needing Assistance Socks OT ADL-Toileting General Evaluation Toileting Ability Independent Comments OT Toileting Comments simulated OT ADL-Bathing Bathing Type Bathing Type Shower Comments OT Bathing Comments Pt requesting to shower. Pt set up with covers to B hands for Iv and dressing protection and left to shower IND. Nursing aware. M5 OT- IP IADL's Start: 06/28/20 12:30 Freq: Status: Active Protocol: Document 06/28/20 12:31 CGR (Rec: 06/28/20 12:38 CGR [email or web address]) OT-Instrumental Activities of Daily Living Deficits IADL Deficits Identified No Deficits Home Safety Awareness Awareness of Need for Assistance at Home Good Awareness Ability to Problem Solve Emergency Able to Problem Solve Situations Medication Management Medication Management No Deficits Identified Money Management Money Management No Deficits Identified Meal Preparation Meal Preparation No Deficits Identified Mission Analyst Mission Analyst No Deficits Identified Driving Driving Comments 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 OT- IP Functional Cognition Start: 06/28/20 12:30 Freq: Status: Active Protocol: Document 06/28/20 12:31 CGR (Rec: 06/28/20 12:38 CGR [email or web address]) Cognitive Factors Limiting Selfcare Function Cognitive Ability Level of Alertness Alert Patient Orientation Name,Age,Birthday,Month,Date, Year,Day of Week,Place, Situation Attention Span Ability Capable of Focused Attention, Capable of Sustained Attention Ability to Follow Commands Able to Follow Multi-Step Commands Memory Description No Deficits Noted Safety Awareness No Deficits Noted Problem Solving Ability No deficits Noted Executive Function Ability No Deficits Noted Abstract Thinking Ability No Deficits Noted OT- Vision and Hearing OT- Hearing Assessment OT- Hearing Assessment WFL OT- Vision Assessment Visual Acuity Glasses For Reading Visual Attentiveness WFL Occular Pursuits WFL Visual Convergence WFL M7 OT- IP Mobility and Balance Start: 06/28/20 12:30 Freq: Status: Active Protocol: Document 06/28/20 12:31 CGR (Rec: 06/28/20 12:38 CGR [email or web address]) OT- Bed Mobility Assessment Rolling Level of Assistance Independent Supine to Sit Supine to Sit Assist Independent Sit to Supine Sit to Supine Assist Independent Scooting Scooting to Edge of Bed Independent OT-Transfer Assessment Sit to and From Stand Sit to and from Stand Independent Transfers Transfer Ability Independent Technique Transfer Destination Bed,Chair,Shower Stall,Toilet Transfer Technique Stand Step Pivot Devices Transfer Assistive Devices None OT- Gait Assessment Gait Gait Assistance Required: Independent Assistive Devices Assistive Device None Comments Gait Ability Comments mobility around the room OT- Balance Assessment Sitting Balance and Reactions Static Sitting Balance Ability Normal Dynamic Sitting Balance Ability Normal Standing Balance and Reactions Static Standing Balance Ability Normal Dynamic Standing Balance Ability Normal M8 OT- IP Objective Assessments Start: 06/28/20 12:30 Freq: Status: Active Protocol: Document 06/28/20 12:31 CGR (Rec: 06/28/20 12:38 CGR [email or web address]) OT Gross Range of Motion Upper Extremity Range of Motion Assessment Left Impaired ROM Impairments L hand restrictions from pain OT Strength Upper Extremity Strength Assessment Within Functional Limits Comments Strength Comments L hand not tested OT- Coordination Assessment Upper Extremity Finger to Nose Test Within Functional Limits Finger Tapping Test Within Functional Limits OT-Muscle Tone Assessment Muscle Tone WNL Yes OT Sensation Assessment Edema Edema Present Edema Comments to the L hand M9 OT- IP Assessment and Plan Start: 06/28/20 12:30 Freq: Status: Active Protocol: Document 06/28/20 12:31 CGR (Rec: 06/28/20 12:38 CGR [email or web address]) OT Summary Assessment and Plan Potential Rehabilitation Potential Excellent Analytic Complexity at Evaluation Low Summary OT Impairments Pain,Range of Motion Progress Towards Goals Progressing Toward Goals,Safe For Discharge Assessment Summary Pt presents as a low complexity evaluation s/p L hand infection requiring I&D. Pt educated on pain management , edema management and home exercise program and provided a handout. Pt is IND in adls and functional mobility on this date and was set up for shower and left to shower with IND. Frequency of Treatment Frequency Of Treatment Discharge Discharge Recommendations OT Discharge Recommendations Home Transportation Needs at Discharge Private Vehicle
--- NOTE | 2020-06-28 13:47 | PC.NURSE ---
Day shift note: Dressing changed as ordered. Pre medicated prior, tolerated well.
[2020-06-28] MEDS: VANCOMYCIN TROUGH 1 REQUEST MISC (16:15)
[2020-06-28 17:01] LABS: Vancomycin Trough 7.5 ug/mL (10-20)
[2020-06-28] MEDS: VANCOMYCIN 1,000 MG/200 ML PIGGYBACK 200 MG IV (23:30)
[2020-06-29] VITALS: BP 133/88; PULSE 93; RESP 18; TEMP 36.9; O2SAT 99
[2020-06-29] MEDS: OXYCODONE IR 10 MG TABLET PO ×3 (00:35→08:22)
[2020-06-29 04:00] VITALS: BP 136/80; PULSE 89; RESP 18; TEMP 36.5; O2SAT 97
[2020-06-29] MEDS: HYDROMORPHONE 0.5 MG INJ IV ×3 (05:11→09:44)
[2020-06-29] MEDS: VANCOMYCIN 1,000 MG/200 ML PIGGYBACK 200 MG IV (05:15)
[2020-06-29 06:10] LABS: BUN Creatinine Ratio 23.6 (6-22); Blood Urea Nitrogen 13 mg/dL (9-20); Calcium 9.2 mg/dL (8.4-10.2); Carbon Dioxide 27 mmol/L (22-32); Chloride 104 mmol/L (98-107); Estimated Glomerular Filt Rate > 60.0 mL/min (>60); Glucose 110 mg/dL (70-100); HEMOLYSIS < 15 (0-50); Potassium 3.5 mmol/L (3.4-5.1); Sodium 139 mmol/L (137-145)
[2020-06-29] MEDS: PANTOPRAZOLE 20 MG TABLET PO (06:26)
[2020-06-29 08:00] VITALS: BP 153/89; PULSE 77; RESP 18; TEMP 36.7; O2SAT 99
--- NOTE | 2020-06-29 08:06 | PM.DS.1 ---
History of Present Illness History of Present Illness Chief complaint: Left hand and finger swelling Narrative: The patient is a 50-year-old left-hand dominant male was had increasing left hand and palm swelling for 1 week. One week ago he was breaking down his camp and went to reach for old treated with block and sustained a splinter into his palm at the area of the 3rd MCP. He had some swelling and pain in this area that progressed over the next few days then on Sunday or of last week a size PCP they were able to get some of the splinter out as well as some of the splinter was taken out by his at home. He was started on oral antibiotics Augmentin. States that his swelling and pain has gotten worse over the last few days. Call his PCP today would advise coming to the ER. Denies fevers or chills of but does had decreased range of motion in his digits swelling pain and streaking up the arm at to his elbow. 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 No known drug allergies. Denies numbness or tingling. Endorses throbbing sharp and aching pain centered as distal palm the base of his 3rd and 4th fingers. Has a history of a gastric sleeve surgery as well as multiple knee surgeries Discharge Providers Provider Date of admission: 06/27/20 14:31 Discharge Date: 06/29/20 Primary care physician: NELLY Juarez Consults: 06/27/20 16:05 Consult to Pastoral Services Routine Comment: esmer saw preop 06/27/20 18:33 Consult to Discharge Planning Routine Comment: Consult to Respiratory Therapy Evaluate & Treat Comment: Physician Instructions: Evaluate and treat 06/28/20 09:41 Consult to Occupational Therapy Evaluate & Treat Comment: Physician Instructions: Evaluate and treat Discharge provider: Magalie Chowdhury MD Summary Hospital Course Discharge Diagnosis: left hand deep space abscess mid palmar space Hospital Course: patient was taken to the operating room on the date of presentation had a drainage of a deep palmar space abscess and irrigation the left ring and middle finger flexor tendon sheaths. Patient was admitted to floor for IV antibiotics. Cultures were still pending at the time of discharge with the patient's clinical examination had markedly root improved with finger range of motion and pain control. He was trained to do t.i.d. warm soapy soaks on the floor. Will do packing changes. Will be discharged on oral antibiotics Bactrim and ciprofloxacin these will be tailored as needed. Pain was controlled. And patient was appropriate for discharge home with self dressing changes Status at Discharge Cognitive/behavioral status at discharge: oriented Functional status at discharge: independent ambulation Overall status at discharge: patient is progressing back to baseline Time Spent with Patient Time spent: Less than 30 minutes Exam Vital Signs (past 8 hours): - 06/29/20 04:00 Temperature 97.7 F Pulse Rate 89 Respiratory Rate 18 Blood Pressure 136/80 Pulse Oximetry 97 Oxygen Delivery Method Room Air Oxygen Flow Rate 0 Objective Labs Result Diagrams: 06/28/20 05:10 06/29/20 05:40 Labs: Laboratory Results - last 24 hr 06/28/20 06/29/20 16:11 05:40 Sodium 139 Potassium 3.5 Chloride 104 Carbon Dioxide 27 BUN 13 Creatinine 0.55 L Estimated GFR > 60.0 BUN/Creatinine Ratio 23.6 H Glucose 110 H Calcium 9.2 Vancomycin Trough 7.5 L Discharge Plan Discharge Plan Patient Disposition: Home Discharge orders & Medications Prescriptions: New ciprofloxacin HCl 250 mg Tablet 750 mg PO BID Qty: 28 RF: 0 oxycodone 5 mg Tablet 5 mg PO Q3HR PRN (Reason: Pain, Moderate (4-6)) Qty: 40 RF: 0 sulfamethoxazole-trimethoprim [Bactrim DS] 800-160 mg tablet 1 tab PO BID Qty: 28 RF: 0 Continued dextroamphetamine-amphetamine 20 mg tablet 20 mg PO BID RF: 0 meloxicam 15 mg tablet 15 mg PO DAILY RF: 0 omeprazole 20 mg capsule,delayed release(DR/EC) 20 mg PO DAILY RF: 0 paroxetine HCl 25 mg tablet extended release 24 hr 25 mg PO DAILY RF: 0 Follow up/Referrals: Jazzy Easley ARNP [Primary Care Provider] - Diet/Activity/Treatments Diet: Diet as Tolerated Activity: warm soapy water soaks 15-20 minutes to left hand daily with packing changes Other treatments: At-Home Instructions - Dr. Chowdhury Surgery: hand abscess drainage Cast/Splint/Dressing Care Instructions 1) change dressing twice a day with warm soapy soaks and packing changes Activity No heavy lifting greater than 10 pounds[address] while on narcotic pain medication. Discharge Pain Medications You will be given a prescription for pain medication. You should start taking this the same day after your surgery. Wean off as tolerated. Do not wait to take the pain medication until the pain is severe, as it will be difficult to catch up once this occurs. The pain medication usually reaches its full effect ~1 hour after ingesting. If you have been sent home on Colace, this medication should be taken until you are off all narcotic (i.e. Vicodin, Percocet, Oxycodone, etc) pain medications, to prevent constipation. You may also obtain this or another stool softener over the counter to prevent or alleviate constipation. Percocet or Vicodin have Tylenol in their ingredient lists. You must be careful not to exceed 3,000mg (3 grams) of Tylenol, from all sources, within a single 24-hr period. This means that you may not take more than 10 pills within a 24-hr period. Do NOT take Regular or Extra Strength Tylenol when taking your Percocet or Vicodin medications. -Some common side effects of the narcotic pain medications (Percocet, Oxycodone, Vicodin, etc.) include nausea and itching. Benadryl is a great over the counter medication that helps calm your stomach, decreases your anxiety levels, and minimizes the itching. You can easily purchase this at your local pharmacy as an [id number]-[id number] medication. Please abide by the instructions as printed on the bottle. If your nausea persists, make sure to take small amounts of crackers or other measurement advisor foods. if discharged with antibiotics take as directed. Follow-Up/Emergency Contacts Please call for an appointment in either [place] or [place], if one has not been scheduled. Follow up 1 week after surgery. [phone] Contact the office if you have any of the following: ? Painful swelling or numbness ? Unrelenting pain ? Fever (over 101?- it is normal to have a low grade fever for the first day or two following surgery) or chills ? Redness around the incisions ? Color changes ? Continuous bleeding or drainage from the incision (a small amount is expected) ? Excessive nausea or vomiting ? Difficulty breathing If you have an emergency that requires immediate attention, proceed to the nearest emergency room. Pain medication: It is the policy of [facility] that narcotic medications will only be refilled during office hours. Additionally, due to the alarming rate of narcotic pain medication abuse/dependence, it has become necessary for physician practices to closely manage patient use of prescription narcotic pain relievers, such as Vicodin (Starlight), Percocet, and Oxycodone products. Narcotic pain management in the postoperative period may not exceed 6 weeks. If narcotic pain management is required beyond 90 days, then a referral to a Chronic Pain Specialist will be made. If a request for a medication prescription has been made, the physician must review your chart prior to authorizing the request. Please be patient with office staff. If you call during patient hours, your call may not be returned until the end of the day. A visit will be required before a narcotic prescription can be issued. Dr. Magalie Chowdhury [address] [email or web address] Skin/Wound/Dressing Care Report to your healthcare provider any signs of infection, such as:: chills, fever, night sweats, increased pain, unusual drainage and unusual redness Dressing: changed twice daily with warm soapy soaks and packing changes Discharge Data Primary Care Provider: Jazzy Easley VTE Deep Vein Thrombosis/Pulmonary Embolism Present on Admission: No
[2020-06-29] MEDS: DOCUSATE 100 MG CAPSULE PO (08:21)
[2020-06-29] MEDS: polyethylene glycoL 3350 17 GM POWD.PACK PO (08:21)
[2020-06-29] MEDS: ACETAMINOPHEN 325 MG TABLET 975 MG PO (08:21)
[2020-06-29] MEDS: CIPROFLOXACIN 250 MG TABLET 750 MG PO (08:23)
[2020-06-29] MEDS: ADDERALL 20 MG 1 EACH PO (08:23)
[2020-06-29] MEDS: PAXIL 25 MG 1 EACH PO (08:25)
[2020-06-29] MEDS: MELOXICAM 7.5 MG TABLET 15 MG PO (08:50)
--- NOTE | 2020-06-29 11:56 | CM.DPC ---
DCP: continued: case received, dc order noted. EMR reviewed. See that plan is for pt to d/c to home setting on oral antibiotics. Met briefly with pt and his as they were completing the d/c information packet with LUIS ANGEL Joshi. Pt was up and mobile in the room. will drive him home. He is following up with Dr. Cabello in clinic.
--- NOTE | 2020-06-29 11:58 | PC.NURSE ---
Day shift note: Discharge instructions given to patient, discussed importance of F/U with Dr. Chowdhury in 1 week, s/sx of infections, activity and weight restrictions, and antibiotic adherence. Dressing changed prior to discharge as ordered, review and demonstrated dressing changed with patient and , answered all questions. Both verbalized understanding of instructions. Home with Gabrielle via private vehicle.
== END 2020-06-29 12:12 | disposition home or self-care (01) | DRG 982 ==
LOC: ED 14:20 → AC 14:32
PROVIDERS: Admitting Provider Orthopaedic Surgery Foot and Ankle Surgery; Emergency Provider Student in an Organized Health Care Education/Training Program; PCP Nurse Practitioner Family; Visit Provider Orthopaedic Surgery Foot and Ankle Surgery
PROC: 0LD70ZZ Extraction of Right Hand Tendon, Open Approach (ICD-10-PCS; principal; 2020-06-27 15:30)
DX: L03.114 Cellulitis of left upper limb (principal); L02.512 Cutaneous abscess of left hand; S61.441A Puncture wound with foreign body of right hand, initial encounter; Z11.59 Encounter for screening for other viral diseases
CPT/HCPCS: 36415; 73120; 80048; 80053; 80202; 83605; 84145; 85025; 85027; 87040; 87070; 87075; 87077; 87147; 87186; 87205; 87635; 96365; 96367; 96372; 96375; 96376; 97110; 97165; 99284; J0696; J1100; J1170; J1885; J2405; J2704; J3010

== ENCOUNTER → 2021-01-26 13:39 | Outpatient (CLI) | payer BC, SELFPAY ==
[2020-06-27 15:05] VITALS: BMI 26.9
[2021-01-26] MEDS: COVID-19 VACC #1, MRNA(MOD) 100 MCG/0.5 ML VIAL IM (13:49)
== END ==
PROVIDERS: PCP Nurse Practitioner Family; Visit Provider Internal Medicine
DX: Z23 Encounter for immunization (principal)
CPT/HCPCS: 0011A; 91301

== ENCOUNTER → 2023-05-17 06:33 | Outpatient (CLI) | payer BC, SELFPAY ==
[2020-06-27 15:05] VITALS: BMI 26.9
--- NOTE | 2023-05-17 06:34 | DI.US.S_ITS ---
PROCEDURE: US EXTREMITY NONVASC LOWER LT INDICATIONS: ABSCESS TECHNIQUE: Real-time scanning was performed of the right groin , with image documentation. COMPARISON: None. FINDINGS: Focus of decreased heterogeneous echogenicity measuring 6.0 x 1.7 x 1.8 cm with increased vascularity is present. IMPRESSION: Focus of heterogeneous echogenicity as above suggestive of residual abscess correlate with clinical history. However, other etiologies can have similar appearance and correlation is recommended. Dictated by: Mar Black M.D. on 05/17/2023 at 12:26 Approved by: Mar Black M.D. on 05/17/2023 at 12:26
== END ==
PROVIDERS: PCP Nurse Practitioner Family; Referring Provider Family Medicine; Visit Provider Family Medicine
DX: L02.416 Cutaneous abscess of left lower limb (principal)
CPT/HCPCS: 76882

== ENCOUNTER 2023-08-03 07:47 | Day surgery (SDC) | payer BC, OTHER, SELFPAY ==
[2020-06-27 15:05] VITALS: BMI 26.9
[2023-07-30 12:38] VITALS: BMI 29.0
[2023-08-03] VITALS (7 sets, daily range): BP systolic 136–164; BP diastolic 64–105; PULSE 74–85; RESP 12–18; TEMP 36.1–36.9; O2SAT 95–100; BMI 28.5
[2023-08-03] MEDS: LACTATED RINGERS 1,000 ML 42 ML IV (08:15)
--- NOTE | 2023-08-03 09:37 | SUR.OPER ---
Lithotomy on padded OR bed, head on pillow, arms secured on padded arm boards at <90 degrees abduction. Legs secured in padded yellow fins stirrups.
--- NOTE | 2023-08-03 09:44 | PM.PREOP ---
Pre-operative Note Interval Note History & Physical reviewed/Exam performed by Physician: Yes Changes to H&P: No
[2023-08-03] MEDS: BUPIVACAINE 0.25% (PF) VIAL 30 ML INJ (10:25)
--- NOTE | 2023-08-03 10:41 | PM.OP.1 ---
Operative Date/Time/Diagnoses Date of procedure: 08/03/23 Time of procedure: 11:33 Pre-op diagnosis: Perirectal abscess Post-op diagnosis: other (Perianal fistula) Procedure & Clinicians Procedure: Rectal examination under anesthesia. Fistulotomy. Same procedure as scheduled: Yes Indications: 53-year-old male with a recurrent draining wound of his left buttock. He is here for a exam under anesthesia. Surgeon: Steven Grigsby Anesthesia Type: General Operative Notes Findings: Superficial edi anal fistula Specimen(s): none sent Estimated Blood Loss (mL): 5 Procedure in detail: Patient was brought to the operating room placed supine table. Bilateral lower extremity compression devices were applied. General anesthesia was induced he was intubated with an LMA. He was then placed into lithotomy position. He was prepped and draped in in typical fashion. Time-out was performed. 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 An internal exam was performed which was unremarkable. A lacrimal probe was inserted into the draining sinus and its point emerged from the 12 o clock position in the perianal tissue below the dentate line. This was a superficial fistula. Local anesthetic was injected and then the fistula tract was opened using knife followed by electrocautery and debrided. Hemostasis was achieved. The wound was irrigated. The tissue was loosely reapproximated using 2-0 nylon sutures. He tolerated the procedure well was transferred to recovery in stable condition. Complications: none Post-operative Condition: stable Disposition: same day surgery
[2023-08-03] MEDS: OXYCODONE IR 5 MG TABLET PO (10:48)
[2023-08-03] MEDS: KETOROLAC 30 MG/ML VIAL IV (10:49)
[2023-08-03] MEDS: ONDANSETRON 4 MG/2 ML INJ IV (10:49)
== END 2023-08-03 11:24 | disposition home or self-care (01) ==
PROVIDERS: PCP Family Medicine; Referring Provider Surgery; Visit Provider Surgery
PROC: (CPT 46040; principal; 2023-08-03 09:15)
DX: K60.3 Anal fistula (principal)
CPT/HCPCS: 46050; J1100; J1885; J2405; J2704; J3010

== ENCOUNTER → 2024-01-27 09:14 | Outpatient (CLI) | payer BC, OTHER, SELFPAY ==
[2020-06-27 15:05] VITALS: BMI 26.9
--- NOTE | 2024-01-27 | DI.MRI.S_ITS ---
PROCEDURE: MR LUMBAR SPINE WO CON INDICATIONS: Low back pain, unspecified TECHNIQUE: Noncontrast sagittal T1 spin echo and T2 fast echo, sagittal STIR, and T2 fast spin echo through the lumbar spine. In cases with scoliosis, additional coronal T2 fast spin echo may be performed. COMPARISON: None. FINDINGS: Image quality: Excellent. Alignment and Curvature: There is normal bony alignment. Bone Marrow: Marrow is of normal overall signal. No acute vertebral body compression fractures. Opposing Modic changes at L4-5. Spinal Cord: Conus medullaris terminates at the L1 level. Visualized cord demonstrates normal signal and size. Paraspinous Soft Tissues: No paravertebral masses. T12-L1: Normal appearance. L1-L2: Normal appearance. L2-L3: Broad-based disc bulge contacting the approaching nerve roots. Small facet effusions. L3-L4: Broad-based disc bulge contacting the approaching nerve roots. Facet hypertrophy and effusions. L4-L5: Broad-based disc bulge, facet hypertrophy. [id number] bilateral neural foraminal narrowing and spinal canal narrowing. L5-S1: Facet hypertrophy and left facet effusion. IMPRESSION: Multilevel degenerative disc disease and facet arthrosis. No severe spinal canal or neural foraminal narrowing. Of note: There is broad-based disc bulge with opposing endplate Modic changes at L4-5, resulting in [id number] neural foraminal narrowing and spinal canal narrowing. Dictated by: Christian Baldwin M.D. on 01/28/2024 at 9:07 Approved by: Christian Baldwin M.D. on 01/28/2024 at 9:11
== END ==
PROVIDERS: PCP Family Medicine; Referring Provider Family Medicine; Visit Provider Family Medicine
DX: M51.36 Other intervertebral disc degeneration, lumbar region (principal); M47.816 Spondylosis without myelopathy or radiculopathy, lumbar region; M47.817 Spondylosis without myelopathy or radiculopathy, lumbosacral region; M48.061 Spinal stenosis, lumbar region without neurogenic claudication; M54.50 Low back pain, unspecified
CPT/HCPCS: 72148